=== PATIENT | male | born 1955 | race Caucasian/White ===

== ENCOUNTER 2017-01-10 19:59 | Emergency (ER) | payer MEDICARE, OTHER ==
[~2017-01-10] VITALS: Ht 177.8 cm; Wt 93.0 kg
[~2017-01-10 19:59] MED LIST: ACIP20TA19 PO; ADVA250A INH; ALBU1AER INH; AMIT24CA5 PO; AZEL0.05 INH; CARD180C5 PO; CRES20TA PO; EZET10 PO; LACT20SO4 PO; MOME17I; MONT10TA2 PO; NITR.4 SL; OXYC1SOL5 PO; OXYC5 PO; PRIN10TA PO; PROT40TA PO; TEMA30CA PO; XYZA5TAB2 PO; Z.0.COMMODE-3:1; Z.0.OXYGEN INH; Z.0.WALKERFRONT
[2017-01-10 20:06] VITALS: BP 168/79; PULSE 82; RESP 16; TEMP 97.9; O2SAT 100
== END 2017-01-10 21:57 | disposition left against medical advice (07) ==
LOC: NED 19:59
DX: S99.919A Unspecified injury of unspecified ankle, initial encounter (principal); X58.XXXA Exposure to other specified factors, initial encounter; Z53.21 Procedure and treatment not carried out due to patient leaving prior to being seen by health care provider
CPT/HCPCS: 99281

== ENCOUNTER → 2017-06-02 | Day surgery (SDC) | payer MEDICARE, OTHER ==
[~2017-06-02] MED LIST changes: +ACETAMINOPHEN 1000 MG/100 ML 100 ML IV ONE; +BUPIVACAINE/EPINEPHRINE 0.25% PF 30 ML VIAL ONE; +KETOROLAC TROMETHAMINE 30 MG/ML (IVP) VIAL IV PUSH ONE; +LACTATED RINGER'S 1000 ML INJ 1,000 ML ONE; +MEPERIDINE HCL 25 MG/ML VIAL ONE; +MIDAZOLAM HCL 2 MG/2 ML VIAL ONE; +ONDANSETRON HCL 4 MG/2 ML VIAL IV PUSH ONE; +PROPOFOL 200 MG/20 ML AMP IV ONE; +SODIUM CHLOR 0.9% 250 ML BAG IV ONE; +VANCOMYCIN HCL 1000 MG VIAL ONE; +ceFAZolin INJ 1,000 MG VIAL ONE
--- NOTE | 2017-06-02 10:32 | RADRPT ---
EXAM DATE/TIME: 06/02/2017 10:10 [place] COMPARISON: No previous studies available for comparison. INDICATIONS : Evaluate for cbd obstruction. FLUORO TIME: 1.75 minutes IMAGE COUNT: 1 MEDICAL HISTORY : Chronic obstructive pulmonary disease. SURGICAL HISTORY : None. ENCOUNTER: Initial ACUITY: 1 day PAIN SCORE: Non-responsive. LOCATION: Right upper quadrant PROCEDURE: CHOLANGIOGRAM, OPERATIVE 1. Intraoperative cholangiogram. In the operating room, the cystic duct stump was injected and radiographs obtained. A single run is presented for interpretation. There is a small caliber catheter entering the cystic d uct. Contrast is seen opacifying the extrahepatic and intrahepatic biliary system. No filling defect observed. Contrast is seen spilling into the duodenum. CONCLUSION: No evidence of common duct stone. Wil Santizo Jr., MD on June 02, 2017 at 10:27 Board Certified Radiologist. This report was verified electronically.
--- NOTE | 2017-06-02 10:44 | MP ---
cc: CARMEN KNOTT M.D. DATE OF SURGERY: 06/02/2017 PREOPERATIVE DIAGNOSIS 1. Cholecystitis with persistent right upper quadrant pain. 2. Umbilical hernia. POSTOPERATIVE DIAGNOSIS 1. Same 2. Umbilical hernia, incarcerated. PROCEDURE 1. Laparoscopic cholecystectomy with intraoperative cholangiogram and intraoperative use of fluoroscopy. 2. Primary umbilical hernia repair. ANESTHESIA General endotracheal. SURGEON Andrea. ESTIMATED BLOOD LOSS 50 mL. FLUIDS 1100 mL crystalloid. COMPLICATIONS None. DRAINS None. SPECIMEN Gallbladder to pathology. PROCEDURE IN DETAIL The patient was taken to the operating room and placed on the operating table in the supine position. After an adequate level of general endotracheal anesthesia was achieved the abdomen was prepped and draped in usual fashion. A timeout was taken confirming the correct patient, site and procedure to be performed. Skin and subcutaneous tissue was infiltrated with local anesthetic and an incision made in the umbilicus. Preperitoneal fat was noted to be incarcerated in the umbilical fascia and the fascia was opened slightly and the tissues dissected around the fascia. The preperitoneal fat was able to be reduced into the abdominal cavity and when this was completed the peritoneal cavity was directly visualized. A 12 mm balloon trocar was then inserted and the balloon inflated. The abdomen was insufflated. The patient was placed in reverse Trendelenburg position. Three 5 mm trocars were placed with the first in the upper midline and second and third in the right subcostal region. All entered the abdominal cavity under direct vision uneventfully. The fundus of the gallbladder was then grasped and retracted upward. Omental adhesions were taken down off of the gallbladder with gentle blunt dissection and minimal use of electrocautery. When this was completed examination revealed a small number of adhesions along the ascending colon which did not appear to be impinging upon it. These were left intact. At this point the cystic artery was circumferentially dissected. This was doubly clipped proximally, singly clipped on the gallbladder side and divided. The cystic duct was then circumferentially dissected and a single clip was placed on the gallbladder side of the cystic duct. A cystic ductotomy was made and an Kirk cholangiocatheter brought in via a separate stab incision. This was placed into the cystic duct and was secured with a clip. Full strength contrast was utilized and under real-time fluoroscopy the bile duct filled with good flow of contrast into the duodenum. There was excellent backfilling into the common hepatic duct and left and right hepatic ducts, as well as some of the hepatic radicles. No filling defects were noted. A cholangiogram was obtained as the patient had a slightly dilated common bile duct. When this was completed, the cholangiocatheter was removed and the cystic duct doubly clipped distally and divided. The gallbladder was dissected off of the liver bed with electro-dissection. The gallbladder was then grasped and removed via the umbilical site. During dissection the gallbladder was entered at one point and all bile was aspirated and irrigated. When this was completed and the specimen was passed off the table, the upper abdomen was re-visualized. The liver bed was made hemostatic with electrocautery. The cystic artery stump and cystic duct stump were both seen to be clean and dry. At this point all irrigation was aspirated and insufflation discontinued. All three trocars and the cholangiocatheter sheath were all then removed under direct vision. Insufflation was discontinued and the upper trocar sites were observed during desufflation. No bleeding was noted from the trocar sites. The laparoscope and umbilical port were then removed. The fascia was closed in the umbilicus with #1 Prolene suture. This was accomplished in a longitudinal interrupted fashion to buttress the umbilical fascia. The defect was approximately 1 cm in size and was felt able to be repaired primarily with good result. When this was completed the remaining local anesthetic was injected into all of the trocar sites with the majority injected around the umbilicus. The skin was closed at each of the trocar sites with 4-0 Vicryl in an interrupted buried fashion except for the cholangiocatheter site. All sites were dressed with Steri-Strips. The patient was extubated and taken back to the recovery room in stable condition. Sponge and needle counts were reported to be correct. MD HUMBERTO Morocho/HENRY /10:17 AM /10:25 AM MTDDaniele
== END | disposition home or self-care (01) ==
LOC: ESDC 06:27
PROVIDERS: ATTEND Surgery Trauma Surgery
DX: K81.1 Chronic cholecystitis (principal); K42.0 Umbilical hernia with obstruction, without gangrene
CPT/HCPCS: 00750; 00790; 47563; 49585; 74300; 88304; J0131; J0690; J1885; J2175; J2250; J2405; J3010; J3370; J7050; J7120